=== PATIENT | female | born 1965 | race Two or more races ===

== ENCOUNTER 2018-06-29 07:46 | Outpatient (CLI) | payer OTHER ==
[~2018-06-29 07:46] MED LIST: FENOFIBRATE40 MG; SYNTHROID137 MCG
== END 2018-06-29 07:53 | disposition home or self-care (01) ==
LOC: SONOGRAMA 07:46
DX: E04.1 Nontoxic single thyroid nodule (principal)

== ENCOUNTER 2025-02-18 07:40 | Outpatient (CLI) | payer OTHER | END 2025-02-18 07:42 | disposition home or self-care (01) | LOC: SONOGRAMA 07:40 | PROVIDERS: ATTEND Pathology Anatomic Pathology & Clinical Pathology | DX: E04.1 Nontoxic single thyroid nodule (principal) ==

== ENCOUNTER 2025-04-01 07:57 | Outpatient (CLI) | payer OTHER | END 2025-04-01 08:05 | disposition home or self-care (01) | LOC: SONOGRAMA 07:57 | PROVIDERS: ATTEND Pathology Anatomic Pathology | DX: D34 Benign neoplasm of thyroid gland (principal); E07.89 Other specified disorders of thyroid; E04.1 Nontoxic single thyroid nodule ==